=== PATIENT | male | born 1945 | race Caucasian/White ===

== ENCOUNTER 2019-08-21 13:09 | Inpatient (IN) ==
[2019-08-21] MEDS ORDERED: DUONEB (A & A) INH ONE (13:37)
--- NOTE | 2019-08-21 14:24 | Diag Imaging Result Doc PS360 ---
EXAM: CHEST-2 VIEWS HISTORY: sob TECHNIQUE: Chest two views COMPARISON: 04/24/2019 FINDINGS: The lungs are hyperexpanded. Large cavity in the right apex is unchanged. Increased interstitial markings in the right base are similar to the prior study. No cardiomegaly. No pulmonary edema. Surgical clips in the right hilum. IMPRESSION: Stable chest Electronically signed by Genaro Ivey 08/21/2019 2:22 PM
--- NOTE | 2019-08-21 14:35 | EKG Report ---
Test Performed on : 08/21/2019 1:42:41 PM Test Reason : sob Blood Pressure : / mmHG Vent. Rate : 120 BPM Atrial Rate : 120 BPM P-R Int : 164 ms QRS Dur : 082 ms QT Int : 298 ms P-R-T Axes : 000 074 057 degrees QTc Int : 421 ms Sinus tachycardia. Nonspecific ST abnormality Abnormal ECG No previous ECGs available Unconfirmed Result
[2019-08-21 14:42] LABS: ALLEN TEST YES; BE 0.9 mmoll (-3.0-3.0); BLOOD TYPE ARTERIAL; HCO3-(ACT) 25.6 mmoll (20.0-26.0); METHB 1.1 % (0.0-1.5); O2(CT) 17.8 mL/dL (15.0-23.0); O2HB 95.6 % (95.0-99.0); PCO2(98.6) 26 mmHg (35-45); PO2(98.6) 80 mmHg (60-100); SAMPLE BLOOD; SAO2 98.7 % (95.0-100.0); THB 13.2 g/dL (11.5-17.4); pH(98.6) 7.54 (7.35-7.45)
[2019-08-21 14:44] LABS: MODALITY CANNULA
[2019-08-21] MEDS ORDERED: TORADOL IV ONE (14:47)
[2019-08-21] MEDS ORDERED: ZOSYN 4.5 GM in NS 100 ML IV ONE (14:47)
[2019-08-21] MEDS ORDERED: NS 1,000 ML IV ONE (14:47)
[2019-08-21 15:36] LABS: BASO# 0.02 X1000 (0.0-0.2); BASO% 0.2 % (0.0-0.8); EOS# 0.01 X1000 (0.0-0.7); EOS% 0.1 % (0.0-10.0); HEMATOCRIT 35.9 % (42.0-52.0); HEMOGLOBIN 11.6 g/dL (14.0-18.0); IMM GRAN# 0.03 X1000 (0.0-0.04); IMM GRAN% 0.4 % (0.0-0.5); LYMPH# 1.03 X1000 (1.2-3.4); LYMPH% 12.6 % (20.5-51.1); MCHC 32.3 g/dL (33-37); MCV 86.5 FL (81-99); MONO# 1.03 X1000 (0.11-0.59); MONO% 12.6 % (1.7-9.3); MPV 9.8 FL (7.4-10.4); NEUT# 6.06 X1000 (1.4-6.5); NEUT% 74.1 % (42.2-75.2); PLT 301 X1000 (130-400); RBC 4.15 XMIL (4.7-6.1); RDW 13.6 % (11.5-14.5); WBC 8.18 X1000 (4.8-10.8)
[2019-08-21 15:45] LABS: INR 1.09; PROTIME 14.3 Seconds (11.0-16.0); PTT 33.1 Seconds (22.3-41.8)
[2019-08-21 16:13] LABS: AGAP 16; ALB/GLOB RATIO 0.9; ALBUMIN 3.6 g/dL (3.5-5.0); ALKALINE PHOSPHATASE 66 U/L (32-122); BUN 17 mg/dL (8-22); CALCIUM 9.2 mg/dL (8.8-10.2); CHLORIDE 97 mmol/L (98-107); CK PROFILE 21 U/L (24-204); COSMO 276; CREATININE 1.1 mg/dL (0.7-1.2); ESTIMATED GFR > 60; GLUCOSE 107 mg/dL (70-104); GOT 10 U/L (10-34); GPT 6 U/L (10-44); POTASSIUM 3.7 mmol/L (3.5-5.1); SODIUM 137 mmol/L (136-145); TCO2 24 mmol/L (25-35); TOTAL PROTEIN 7.4 g/dL (6.3-8.3)
[2019-08-21 16:15] LABS: URINE SOURCE CLEAN CATCH
--- NOTE | 2019-08-21 16:18 | PROVIDER DOCUMENTATION ---
This chart was entered by Tiffany Baig Scribe, acting as scribe for Carlos Manuel Waite MD. HPI-Respiratory General - General Chief Complaint: SEPSIS ALERT - D Stated Complaint: SOB, COUGH Time Seen by Provider: 08/21/19 13:33 Source: patient Allergies/Adverse Reactions: Patient Allergies Allergy/AdvReac Type Severity Reaction Status Date / Time No Known Allergies Allergy Verified 10/13/16 11:29 Home Medications: Home Medication List Medication Instructions Recorded Confirmed Last Taken Type Albuterol [Albuterol Neb] 2.5 mg INH TID 10/13/16 08/21/19 11/22/17 12:00 History - History of Present Illness-Resp Nature of Presenting Problem: Patient is a 73 year old male who presents to the ED with shortness of breath, fever and cough. States symptoms have been present for 8 days. History of COPD. Quality of Pain: reports: tightness Severity in ED: reports: moderate Onset/Duration: reports: other (8 days) Timing: reports: still present, getting worse Cough Quality/Degree: reports: moderate, productive cough, sputum (green) Current Respiratory Medication Therapy: Initiated see nurses note Associated Symptoms: reports: cough, fever/chills (fever), shortness of breath Similar Symptoms Previously?: Yes Recently seen or treated by another doctor?: No Review of Systems - Adult - REVIEW OF SYSTEMS - ADULT ROS:: limited per condition Constitutional: reports: see HPI, fever. denies: chills, fatique Eyes: reports: no symptoms reported Ears, Nose, Mouth & Throat: reports: no symptoms reported Cardiovascular: reports: no symptoms reported Respiratory: reports: see HPI, cough, shortness of breath. denies: wheezing Gastrointestinal: reports: no symptoms reported Genitourinary: reports: no symptoms reported Musculoskeletal: reports: no symptoms reported Integumentary: reports: no symptoms reported Neurological: reports: no symptoms reported Psychiatric: reports: no symptoms reported Endocrine: reports: no symptoms reported Hematologic/Lymphatic: reports: no symptoms reported Allergic/Immunologic: reports: no symptoms reported All Other Systems: Reviewed and Negative Past History - Adult - PAST MEDICAL HISTORY-ADULT Review of Records: reports: Old Records Reviewed, Social history reviewed & non- contributory. Major Childhood Illnesses: reports: denies history Cardiovascular: reports: denies history Respiratory: reports: COPD, pneumonia Gastrointestinal: reports: denies history Obstetrical/Gynecological: reports: denies history Genitourinary: reports: denies history Musculoskeletal: reports: denies history Neurological: reports: denies history Endocrine/Immune: reports: denies history Other Conditions: reports: denies history - PRIOR SURGERIES/PROCEDURES Surgical/Procedure History: reports: other ( partial lobectomy) - IMMUNIZATION STATUS Childhood Immunizations: See Nurse Assessment Flu Vaccine: See Nurse Assessment - FAMILY HISTORY Family History: reviewed, not pertinent - SOCIAL HISTORY Smoking: cigarettes (former) Substance Use: denies Physical Exam-General - CONSTITUTIONAL General Appearance: alert, moderate distress, thin. negative: obtunded - EYES Eyes: PERRL/EOMI, pink conjunctivae - HEAD, EARS, NOSE, MOUTH & THROAT HENMT: normocephalic/atraumatic, moist mucous membranes - NECK Neck: full range of motion, supple - RESPIRATORY Respiratory: chest non-tender, respiratory distress, accessory muscle use, rales (right), increased rate. negative: wheezing - CARDIOVASCULAR Cardiovascular: normal peripheral pulses, tachycardia. negative: regular rate, rhythm - GASTROINTESTINAL (ABDOMEN) Abdominal Exam: normal bowel sounds, non tender, soft. negative: guarding, rebound - MUSCULOSKELETAL Back Exam: normal inspection, no CVA tenderness Extremity: normal inspection. negative: deformity, erythema, swelling - SKIN Integumentary: normal color, normal turgor, warm/dry. 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 negative: aphasia, facial droop - PSYCHIATRIC Psych/Mental Status: normal mood/affect, normal thought content, normal thought process, oriented x 3. negative: anxious - HEART Score HEART Score: History: Slightly Suspicious HEART Score: ECG: Non-Specific Repolarization Disturbance/LBBB/PM HEART Score: Age: > or = 65 Years HEART Score: Risk Factors for Atherosclerotic Disease: 1 or 2 Risk Factors HEART Score: Troponin: < or = Normal Limit Total HEART Score:: 4 Progress - PLAN OF CARE/RESULTS Progress/Plan/Lab Results: Vital Signs - 8 hr 08/21/19 13:25 08/21/19 14:42 08/21/19 14:44 Temperature 98.7 F Pulse Rate 122 H 122 H 180 H Respiratory Rate 30 H 25 H 41 H Blood Pressure 106/69 O2 Sat by Pulse Oximetry 97 08/21/19 14:45 08/21/19 15:00 08/21/19 15:04 Temperature Pulse Rate 174 H 169 H 108 H Respiratory Rate 37 H 30 H 20 Blood Pressure 106/62 O2 Sat by Pulse Oximetry 100 90 L 08/21/19 15:15 08/21/19 15:30 08/21/19 15:45 Temperature Pulse Rate 117 H 113 H 114 H Respiratory Rate 55 H 51 H 54 H Blood Pressure O2 Sat by Pulse Oximetry 99 99 98 08/21/19 16:00 08/21/19 16:04 Temperature Pulse Rate 102 H 104 H Respiratory Rate 16 52 H Blood Pressure 108/65 O2 Sat by Pulse Oximetry 99 98 Laboratory Results - last 24 hr 08/21/19 08/21/19 08/21/19 14:34 15:09 15:09 WBC 8.18 RBC 4.15 L Hgb 11.6 L Hct 35.9 L MCV 86.5 MCH 28.0 MCHC 32.3 L RDW Std Deviation 13.6 Plt Count 301 MPV 9.8 Immature Gran % (Auto) 0.4 Neut % (Auto) 74.1 Lymph % (Auto) 12.6 L Davis % (Auto) 12.6 H Eos % (Auto) 0.1 Baso % (Auto) 0.2 Immature Gran # (Auto) 0.03 Neut # (Auto) 6.06 Lymph # (Auto) 1.03 L Davis # (Auto) 1.03 H Eos # (Auto) 0.01 Baso # (Auto) 0.02 PT INR PTT (Actin FS) Specimen Type ARTERIAL Sample Site R RADIAL pH 7.54 H pCO2 26 L pO2 80 HCO3 25.6 Base Excess 0.9 Oxyhemoglobin 95.6 ABG O2 Sat (Calculated) 17.8 ABG O2 Saturation 98.7 ABG Carboxyhemoglobin 2.00 ABG Methemoglobin 1.1 Lico Test YES A-a O2 Difference 87.0 Total Hemoglobin 13.2 Lactate 1.70 Liter Flow 2.0 Blood Gas Modality CANNULA FiO2 % 28.0 Sodium 137 Potassium 3.7 Chloride 97 L Carbon Dioxide 24 L Anion Gap 16 BUN 17 Creatinine 1.1 Estimated GFR/1.73 m2 > 60 BUN/Creatinine Ratio 15 Glucose 107 H Calculated Osmolality 276 Calcium 9.2 Total Bilirubin 0.50 AST 10 ALT 6 L Alkaline Phosphatase 66 Creatine Kinase 21 L Troponin T Total Protein 7.4 Albumin 3.6 Globulin 3.8 Albumin/Globulin Ratio 0.9 Plasma Lactate 08/21/19 08/21/19 08/21/19 15:09 15:09 15:09 WBC RBC Hgb Hct MCV MCH MCHC RDW Std Deviation Plt Count MPV Immature Gran % (Auto) Neut % (Auto) Lymph % (Auto) Davis % (Auto) Eos % (Auto) Baso % (Auto) Immature Gran # (Auto) Neut # (Auto) Lymph # (Auto) Davis # (Auto) Eos # (Auto) Baso # (Auto) PT 14.3 INR 1.09 PTT (Actin FS) 33.1 Specimen Type Sample Site pH pCO2 pO2 HCO3 Base Excess Oxyhemoglobin ABG O2 Sat (Calculated) ABG O2 Saturation ABG Carboxyhemoglobin ABG Methemoglobin Lico Test A-a O2 Difference Total Hemoglobin Lactate Liter Flow Blood Gas Modality FiO2 % Sodium Potassium Chloride Carbon Dioxide Anion Gap BUN Creatinine Estimated GFR/1.73 m2 BUN/Creatinine Ratio Glucose Calculated Osmolality Calcium Total Bilirubin AST ALT Alkaline Phosphatase Creatine Kinase Troponin T < 0.010 Total Protein Albumin Globulin Albumin/Globulin Ratio Plasma Lactate 1.4 Orders Category Date Time Status Cardiac Monitoring DIRECTED Care 08/21/19 13:30 Active Cardiac Monitoring DIRECTED Care 08/21/19 13:37 Active IV Insertion ORDERED Care 08/21/19 13:37 Completed Notify MD of + Sepsis Screen NOW Care 08/21/19 13:37 Active Notify Physician As Ordered Care 08/21/19 13:37 Active Oxygen Therapy- ED Nursing DIRECTED Care 08/21/19 13:30 Active Oxygen Therapy- ED Nursing DIRECTED Care 08/21/19 13:37 Active Saline Loc NOW Care 08/21/19 13:30 Active CHEST-2 VIEWS [RAD] Stat Exams 08/21/19 13:30 Completed ABG [RESP] Routine Lab 08/21/19 14:34 Completed BLOOD CULTURE [BLDCUL] Stat Lab 08/21/19 15:28 Results CBC WITH ELECTRONIC DIFF [HEME] Stat Lab 08/21/19 15:09 Completed CK PROFILE [SP CHEM] Stat Lab 08/21/19 15:09 Completed COMPREHENSIVE METABOLIC PANEL [CHEM] Stat Lab 08/21/19 15:09 Completed LACTATE, PLASMA [CHEM] Lab 08/21/19 16:45 Uncollected LACTATE, PLASMA [CHEM] Lab 08/21/19 19:45 Uncollected LACTATE, PLASMA [CHEM] Stat Lab 08/21/19 15:09 Completed PRO B-NATRIURETIC PEPTIDE Stat Lab 08/21/19 15:09 Received PROTIME WITH INR [COAG] Stat Lab 08/21/19 15:09 Completed PTT [COAG] Stat Lab 08/21/19 15:09 Completed TROPONIN T Stat Lab 08/21/19 15:09 Completed URINALYSIS W/POSS RFLX CULT [URINALYSIS] Stat Lab 08/21/19 16:10 Ordered 0.9% Sodium Chloride Inj [Ns] 1,000 ml Med 08/21/19 14:47 Discontinued IV 999 mls/hr Albuterol 2.5MG/Ipratrop 0.5MG [Duoneb (A & A)] Med 08/21/19 13:37 Discontinued 3 ml INH NOW ONE Ketorolac [Toradol] Med 08/21/19 14:47 Discontinued 15 mg IV NOW ONE Piperacillin/Tazobactam [Zosyn] 4.5 gm Med 08/21/19 14:47 Discontinued 0.9% Sodium Chloride Inj [Ns] 100 ml IV NOW Aerosol Treatments Routine Oth 08/21/19 13:38 Completed Aerosol Treatments Stat Oth 08/21/19 13:38 Completed CP/SOB/Palp >45 yrs of Age Stat Oth 08/21/19 13:29 Ordered Oxygen Device Stat Oth 08/21/19 13:37 Active Pulse Oximetry Stat Oth 08/21/19 13:37 Active neb [Aerosol Treatments] Stat Oth 08/21/19 13:37 Completed EKG [EKG] Stat Ther 08/21/19 13:30 Draft EKG [EKG] Stat Ther 08/21/19 15:52 Ordered Result Diagrams: 08/21/19 15:09 08/21/19 15:09 - EKG 1 Time of EKG reading by physician:: 13:42 EKG Read and Signed by:: Carlos Manuel Waite EKG Interpretation (*Must complete 3 of following elements*): Abnormal Rate: 120 Rhythm: sinus tachycardia [place]: normal [place] Interval: normal Comments: nonspecific ST abnormality. 2 Time of EKG reading by physician:: 14:56 EKG Read and Signed by:: Carlos Manuel Waite EKG Interpretation (*Must complete 3 of following elements*): Abnormal Rate: 175 Rhythm: supraventricular tachycardia [place]: normal Comments: cannot rule out inferior infarct, age undetermined - XRAY 1 XRAY Study: Chest Impression: See EMR Report ( EXAM: CHEST-2 VIEWS HISTORY: sob TECHNIQUE: Chest two views COMPARISON: 04/24/2019 FINDINGS: The lungs are hyperexpanded. Large cavity in the right apex is unchanged. Increased inter stitial markings in the right base are similar to the prior study. No cardiomegaly. No pulmonary edema. Surgical clips in the right hilum. IMPRESSION: Stable chest Electronically signed by Genaro Ivey 08/21/2019 2:22 PM 08/21/19 142 Interpreting Physician: Genaro Ivey MD Dictated Date/Time: 08/21/191421 cc: Carlos Manuel Waite MD; None,PCP) Departure - Departure Date of Disposition Decision: 08/21/19 Time of Disposition Decision: 16:16 DIAGNOSIS: COPD exacerbation, Respiratory distress, acute, Tachycardia Disposition: ADMITTED INPATIENT 09 Certified Medical Emergency: Emergent Condition: Stable Referrals and Follow-Ups: None,PCP [Primary Care Provider] - - Critical Care Note This patient required my direct & personal management of CC.: No Attestation - Physician/ ABDIRIZAK Attestation The physician spent face to face time with patient:: Yes Advanced Practice Provider documentation review:: Supervising physician onsite and consulted in the evaluation and care of this patient. The physician did have a face to face encounter with the patient. This chart was documented by the indicated scribe, (Tiffany Baig Scribe) and accurately reflects the services I performed and decisions made by me, Carlos Manuel Thacker MD, as attested by the provider's signature.
[2019-08-21 16:19] LABS: BILIRUBIN URINE NEGATIVE (NEGATIVE); BLOOD URINE TRACE (NEGATIVE); COLOR YELLOW; GLUCOSE URINE TRACE mg/dL (NEGATIVE); KETONE URINE 10 mg/dL (NEGATIVE); LEUKOCYTES URINE NEGATIVE (NEGATIVE); NITRITE URINE NEGATIVE (NEGATIVE); PROTEIN URINE 100 mg/dL (NEGATIVE); SP GRAVITY URINE 1.032; TURBIDITY URINE CLEAR (CLEAR); UROBILINOGEN URINE NORMAL (NORMAL)
[2019-08-21 16:21] LABS: UR EPITHELIAL CELLS <10 /HPF (<10); URINE BACTERIA NEGATIVE /HPF; URINE RBC <10 /HPF (<10); URINE WBC <10 /HPF (<10)
[2019-08-21] MEDS ORDERED: TYLENOL PO PRN (16:54)
[2019-08-21] MEDS ORDERED: DUONEB (A & A) INH PRN (16:56)
--- NOTE | 2019-08-21 17:11 | EKG Report ---
Test Performed on : 08/21/2019 2:56:29 PM Test Reason : sob,tachycardia Blood Pressure : / mmHG Vent. Rate : 175 BPM Atrial Rate : 174 BPM P-R Int : 000 ms QRS Dur : 094 ms QT Int : 286 ms P-R-T Axes : 000 073 069 degrees QTc Int : 488 ms Supraventricular tachycardia. Cannot rule out Inferior infarct , age undetermined Abnormal ECG When compared with ECG of 21-AUG-2019 13:42, (Unconfirmed) ST now depressed in Inferior leads Nonspecific T wave abnormality now evident in Lateral leads Unconfirmed Result
[2019-08-21] MEDS: SOLU-MEDROL IV SCH (18:22)
--- NOTE | 2019-08-21 18:27 | HISTORY AND PHYSICAL ---
HISTORY OF PRESENT ILLNESS: Mr. Martinez said for a week now, he has had trouble with shortness of breath and dyspnea and coughing. Denies any fever or chills. Denies pleuritic pain. Denies real pressure or squeezing chest pain. No hard chills. He has been coughing up greenish sputum. He has known COPD. PAST MEDICAL HISTORY: 1. Severe chronic obstructive pulmonary disease. He is not on oxygen at home. 2. History of bronchiectasis. He has a history of right upper lobectomy for necrotizing pneumonia. 3. He has had a history of quinolone resistant Pseudomonas when he was in the hospital on 12/02/2017. He really gives no other real history. SOCIAL HISTORY: Retired. 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 Also worked at [employer]. Greater than [address] Montalvo is his ems director; been following for a while. FAMILY HISTORY: Positive for emphysema, coronary artery disease. REVIEW OF SYSTEMS: General: He is not eating very much. He is just not very hungry. He said for the last couple of days, his bowels have not worked, but he does not feel constipated. He just has not put much food in. HEENT: No change in vision or hearing acuity. Respiratory: As above. Increased dyspnea, increased cough, increased dyspnea on exertion and dyspnea at rest. Cardiovascular: No chest pain or tachypalpitations. Gastrointestinal and Genitourinary: No gross hematuria or dysuria. Musculoskeletal/Neurologic: No significant complaints. Endocrinologic/Hematologic: No significant history. PHYSICAL EXAMINATION: VITAL SIGNS: Temperature 98.7 degrees, pulse 104, respirations were at 50 when he came in, blood pressure 108/65. HEENT: Pupils are equal and round. He is alert and oriented x3. Pleasant. Oral and nasal mucosa a little bit dry. No distended neck veins. CVP less than 6 cm from the right atrium. LUNGS: Decreased diminished breath sounds at both bases. Prolonged expiratory phase. Tachypneic, but able to talk, and he did have a deep raspy cough. CARDIOVASCULAR: Regular rhythm and rate without murmur or S3. Apparently, when he came, he had a supraventricular tachycardia. Rate was 175, and it slowed down. He is in sinus tachycardia, rate 120. ABDOMEN: Soft, nontender, and nondistended. SKIN: Warm and dry. LAB: White count 8180, hematocrit is 35, platelet count is 301,000. Sodium 137, potassium 3.7, chloride 97, BUN 17, creatinine 1.1, blood sugar is 107, calcium is 9.2, AST is 10, ALT is 6. Troponin was less than 0.01. ProBNP 458. Albumin 3.6. Pro-time 14.3. Urinalysis unremarkable. Blood gas: PH was 7.54, pCO2 was 26, pO2 was 80, and this was on FiO2 of 28%. X-RAY: Chest x-ray: Stable chest. Lungs are hyperexpanded. Large cavity in the right apex, unchanged. Increased interstitial markings in the right base similar to prior study. No cardiomegaly. No pulmonary edema. ASSESSMENT AND PLAN: 1. Chronic obstructive pulmonary disease and underlying bronchiectasis. He is status post right upper lobectomy for necrotizing pneumonia in the past. History in the past of having a quinolone resistant Pseudomonas. At this time, he has had increased cough and increased bronchospasm, and we are going to see if we can treat him with some Solu-Medrol. We will give him some empiric antibiotic. I guess we probably ought to use cefepime because he has had a history of resistant Pseudomonas infections in the past. We will reculture his sputum and ask Dr. Montalvo, who knows him well, to follow along. 2. His supraventricular tachycardia looks to be sinus tachycardia. It looks like he is volume depleted. We are going to give him some normal saline. Will run it in at 85 mL an hour. Will give him Solu-Medrol. I think we will do the Solu-Medrol at 60 mg intravenously every 8 hours. Will give him DuoNebs every 4 hours while awake and then every 2 hours p.r.n., and we will put him on an inhaled corticosteroid inhaler. I will use Symbicort 80 micrograms and will do 2 puffs twice a day, and of course his supplementary oxygen. cc: Lico Cortes MD
[2019-08-21] MEDS: MAXIPIME 2 GM in NS 100 ML IV SCH (18:28)
[2019-08-21] MEDS: DUONEB (A & A) INH SCH ×2 (22:29)
[2019-08-21] MEDS: SYMBICORT 80/4.5 MICROGM INHALER INH SCH (23:14)
[2019-08-22] MEDS: SOLU-MEDROL IV SCH ×3 (01:16→16:15)
[2019-08-22] MEDS: DUONEB (A & A) INH SCH ×6 (03:28→23:20)
[2019-08-22] MEDS: MAXIPIME 2 GM in NS 100 ML IV SCH ×2 (05:24→16:50)
[2019-08-22 07:22] LABS: RBC 4.02 XMIL (4.7-6.1); RDW 13.5 % (11.5-14.5)
[2019-08-22 08:07] LABS: AGAP 13; ALB/GLOB RATIO 0.7; ALBUMIN 3.1 g/dL (3.5-5.0); ALKALINE PHOSPHATASE 66 U/L (32-122); BUN 16 mg/dL (8-22); CALCIUM 8.9 mg/dL (8.8-10.2); CHLORIDE 104 mmol/L (98-107); COSMO 283; CREATININE 0.8 mg/dL (0.7-1.2); ESTIMATED GFR > 60; GLUCOSE 178 mg/dL (70-104); GOT 10 U/L (10-34); GPT 6 U/L (10-44); SODIUM 139 mmol/L (136-145); TCO2 22 mmol/L (25-35); TOTAL BILIRUBIN 0.34 mg/dL (0.20-1.00); TOTAL PROTEIN 7.7 g/dL (6.3-8.3)
[2019-08-22 08:27] LABS: BASO# 0.01 X1000 (0.0-0.2); BASO% 0.2 % (0.0-0.8); HEMATOCRIT 35.3 % (42.0-52.0); HEMOGLOBIN 11.6 g/dL (14.0-18.0); IMM GRAN# 0.02 X1000 (0.0-0.04); IMM GRAN% 0.5 % (0.0-0.5); LYMPH# 0.88 X1000 (1.2-3.4); MCH 28.9 PG (27-31); MCHC 32.9 g/dL (33-37); MCV 87.8 FL (81-99); MONO# 0.14 X1000 (0.11-0.59); MONO% 3.2 % (1.7-9.3); MPV 9.7 FL (7.4-10.4); NEUT# 3.34 X1000 (1.4-6.5); NEUT% 76.1 % (42.2-75.2); PLT 262 X1000 (130-400); WBC 4.39 X1000 (4.8-10.8)
[2019-08-22] MEDS: SYMBICORT 80/4.5 MICROGM INHALER INH SCH ×2 (08:29→19:36)
--- NOTE | 2019-08-22 15:56 | PROGRESS NOTE ---
DATE: 08/22/2019 SUBJECTIVE: Patient has no major complaints. Still coughing, still short of breath overall. OBJECTIVE: Vital Signs: Blood pressure 127/47, heart rate 65, respiratory rate 26, temperature 97.4 degrees, satting 100% on room air. Cardiovascular: Regular rate and rhythm. Pulmonary: Bilateral breath sounds. Clear to auscultation. GI: Soft, nontender, nondistended. Bowel sounds are positive. Extremity Exam: No clubbing or cyanosis. Lymphatic Exam: No peripheral edema. Neurological Exam: Nonfocal. He is very thin, cachectic. He does have some end- expiratory wheezes. He has a very productive cough, but his wheezing has improved. LABORATORY DATA: White count 4, hemoglobin and hematocrit 11 and 35, platelets 362. Basic was normal. PROBLEM LIST: 1. Acute chronic obstructive pulmonary disease exacerbation, probably atelectasis. I am going to go ahead and progress with a CT as it has been a while. He has had Pseudomonas in the past. He is currently on cefepime. He is on steroids, breathing treatments and follow. There was a description that we consulted Dr. Montalvo, but he did not specifically ask for Dr. Montalvo, and I get a sense Dr. Montalvo follows him pretty closely because he has had several visits. 2. Hypoxic respiratory failure. We will continue supportive therapies and monitor. 3. Disposition: Pending clinical status. Anticipate discharge and it is at least going to be a couple days. cc: Rupert Sandoval MD
--- NOTE | 2019-08-22 19:05 | Diag Imaging Result Doc PS360 ---
EXAM: CT THORAX W/CONTRAST HISTORY: pneumonia TECHNIQUE: CT chest with intravenous contrast COMPARISON: 10/08/2015 and chest x-ray from 04/24/2019 FINDINGS: Severe emphysema. The right upper lobe has been resected. The mediastinum is shifted to the right. Large right apical cavity with debris has increased in size. There are surgical clips in this right suprahilar area. No cardiomegaly. No effusions. No thoracic aortic aneurysm or dissection. Normal opacification of the pulmonary arteries. Development of multiple tiny cavities in the right lung base. Scattered granuloma. IMPRESSION: The appearance of the CT is unchanged from the prior chest x-ray of 04/24/2019. Interval progression compared to the CT from 10/08/2015. This exam was performed using automated exposure control, adjustment of mA or kV according to patient size, and/or use of iterative reconstruction technique. Electronically signed by Genaro Ivey 08/22/2019 7:02 PM
[2019-08-23] MEDS: SOLU-MEDROL IV SCH ×3 (01:47→17:04)
[2019-08-23] MEDS: DUONEB (A & A) INH SCH ×6 (03:21→23:26)
--- NOTE | 2019-08-23 05:02 | PULMONOLOGY CONSULTATION ---
DATE: 08/22/2019 REQUESTING CLINICIAN: Rupert Sandoval MD. REASON FOR CONSULTATION: Chronic obstructive pulmonary disease with exacerbation of bronchiectasis. HISTORY OF PRESENT ILLNESS: Mr. Martinez is a 73-year-old white male who has been followed by this practitioner for several years. The patient had a history of hemoptysis with necrotizing pneumonia of the right upper lobe and ultimately required a right upper lobectomy due to ongoing bleeding and persistent air leak. The patient has severe COPD with a component of bronchiectasis. Prior cultures have revealed quinolone resistant Pseudomonas, but not consistently. The patient reports he developed increased cough, increased sputum production, increasing shortness of breath and fevers on the day prior to admission. He was hoping that he would improve and delayed coming to the emergency room. He was admitted last evening. CT scan of the thorax was performed today, which reveals severe emphysematous changes with chronic right apical cavity, and extensive cavitary/fibrosis of the right lower lobe. He reports he has improved with antibiotics. PAST MEDICAL HISTORY/PROBLEM LIST: 1. Prior right upper lobectomy for necrotizing pneumonia as per above. 2. 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 3. Bronchiectasis. 4. History of quinolone resistant Pseudomonas aeruginosa. The most recent sputum cultures approximately 1 year ago revealed quinolone sensitiv Pseudomonas aeruginosa. 5. 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 SOCIAL HISTORY: The patient has a remote history of tobacco. He is retired from [employer]. FAMILY HISTORY: Noncontributory to current presentation. REVIEW OF SYSTEMS: As noted in the HPI. PHYSICAL EXAMINATION: General: Reveals a frail chronically ill-appearing male resting comfortably and in no distress. Vital Signs: Blood pressure is 124/48, heart rate is 74, respiratory rate is 26, oxygen saturation is 100%. HEENT: Pupils are equal and reactive. Oropharynx appears clear. Neck: Supple. Chest: Reveals crackles at the right base with rhonchi bilaterally. The patient has prolonged expiratory phase Cardiac: S1, S2. Abdomen: Soft. Extremities: Without edema. LABORATORY DATA: CT scan as per HPI. Sputum culture is pending. White blood count is 4.39, hemoglobin is 11.6, platelet count is 262,000. IMPRESSION: A 73-year-old with: 1. Exacerbation of bronchiectasis. 2. Severe COPD. 3. Fevers. 4. Pulmonary cachexia. DISCUSSION: A 73-year-old with the problems outlined above. The patient reports he has had some improvement with current antibiotic regimen. We will recommend a 2-week course of antibiotics for his current exacerbation. The exact antibiotics will depend on the results of his sputum cultures. cc: Wero Montalvo MD
[2019-08-23] MEDS: PRILOSEC PO SCH (06:12)
[2019-08-23] MEDS: LOVENOX SUBQ SCH (06:12)
[2019-08-23] MEDS: MAXIPIME 2 GM in NS 100 ML IV SCH ×2 (06:12→17:13)
[2019-08-23] MEDS: SYMBICORT 80/4.5 MICROGM INHALER INH SCH ×2 (07:40→19:27)
[2019-08-23 08:26] LABS: AGAP 12; BUN 20 mg/dL (8-22); CALCIUM 9.3 mg/dL (8.8-10.2); CHLORIDE 105 mmol/L (98-107); COSMO 288; CREATININE 0.8 mg/dL (0.7-1.2); ESTIMATED GFR > 60; GLUCOSE 173 mg/dL (70-104); POTASSIUM 3.8 mmol/L (3.5-5.1); SODIUM 141 mmol/L (136-145); TCO2 24 mmol/L (25-35)
[2019-08-23 08:45] LABS: EOS# 0.02 X1000 (0.0-0.7); EOS% 0.2 % (0.0-10.0); HEMATOCRIT 35.2 % (42.0-52.0); HEMOGLOBIN 11.2 g/dL (14.0-18.0); IMM GRAN# 0.08 X1000 (0.0-0.04); IMM GRAN% 0.7 % (0.0-0.5); LYMPH# 0.79 X1000 (1.2-3.4); MCHC 31.8 g/dL (33-37); MONO# 0.39 X1000 (0.11-0.59); MONO% 3.4 % (1.7-9.3); MPV 9.4 FL (7.4-10.4); NEUT# 10.04 X1000 (1.4-6.5); NEUT% 88.7 % (42.2-75.2); PLT 346 X1000 (130-400); RDW 13.5 % (11.5-14.5); WBC 11.32 X1000 (4.8-10.8)
[2019-08-23 09:00] LABS: BANDS 2 % (0-1); LYMPHS 10 % (21-51); MONO 2 % (1-9); SEGS 86 % (42-75)
--- NOTE | 2019-08-23 20:46 | PROGRESS NOTE ---
DATE: 08/23/2019 SUBJECTIVE: The patient has no major complaints. He is doing okay. OBJECTIVE: Vital Signs: Blood pressure 115/44, heart rate of 82, respiratory rate of 24, temperature 97.3 degrees, 98% on room air. Cardiovascular: Regular rate and rhythm. Pulmonary: Bilateral breath sounds. Clear to auscultation. No wheezing. GI: Soft, nontender, and nondistended. Bowel sounds are positive. PROBLEM LIST: 1. Acute chronic obstructive pulmonary disease exacerbation. He is still on breathing treatments and steroids, and we will follow. 2. White count is 11, hemoglobin and hematocrit 11 and 35, platelets 346,000. 3. CT scan showed severe emphysema, resected right upper lobe, apical cavity with debris, but there was no clear pneumonia. 4. Bronchitis, but growing out gram-negative rods. He has had Pseudomonas in the past and he is currently on status cefepime. Dr. Montalvo has been consulted, so we will treat based on the culture results. 5. Disposition. Once we have culture results, should be able to go home soon, hopefully in the next 1 to 2 days pending resolution. cc: Rupert Sandoval MD
[2019-08-24] MEDS: SOLU-MEDROL IV SCH ×2 (00:26→09:05)
[2019-08-24] MEDS: DUONEB (A & A) INH SCH ×4 (03:40→15:37)
[2019-08-24] MEDS: LOVENOX SUBQ SCH (05:59)
[2019-08-24] MEDS: PRILOSEC PO SCH (06:00)
[2019-08-24] MEDS: MAXIPIME 2 GM in NS 100 ML IV SCH (06:00)
--- NOTE | 2019-08-24 06:28 | PULMONOLOGY PROGRESS NOTE ---
DATE: 08/23/2019 SUBJECTIVE: The patient is awake, alert, and conversant. He has a good cough effort but reports his sputum production has diminished. OBJECTIVE: Vital Signs: The patient has been afebrile for the last 24 hours. Blood pressure 115/44, heart rate 82, respiratory rate 24, and oxygen saturation 98% on 2 L per nasal cannula. HEENT: Pupils are equal and reactive. Oropharynx appears clear. Neck: Supple. Lungs: Chest reveals rhonchi bilaterally with crackles at the right base. Cardiac: S1, S2. Abdomen: Soft. Extremities: Without edema. LABORATORIES: Sputum culture is growing a gram-negative reilly. White blood count is elevated 11.32, hemoglobin 11.2, and platelet count 346,000. IMPRESSION: A 73-year-old with the followin. Exacerbation of bronchiectasis. 2. Severe chronic obstructive pulmonary disease. 3. Fevers. 4. Pulmonary cachexia. 5. Gram-negative organism in sputum, likely responsible for his exacerbation of bronchiectasis. PLAN: 1. Continue current antibiotic regimen. 2. Continue bronchial hygiene. 3. Anticipate 2 week course of antibiotics. Antibiotic selection will depend on results of his sputum cultures. cc: Wero Montalvo MD
[2019-08-24] MEDS: SYMBICORT 80/4.5 MICROGM INHALER INH SCH (08:00)
[2019-08-24 08:46] LABS: BASO# 0.01 X1000 (0.0-0.2); BASO% 0.1 % (0.0-0.8); HEMATOCRIT 34.6 % (42.0-52.0); IMM GRAN# 0.26 X1000 (0.0-0.04); IMM GRAN% 1.8 % (0.0-0.5); LYMPH# 0.72 X1000 (1.2-3.4); LYMPH% 5.1 % (20.5-51.1); MCH 28.3 PG (27-31); MCHC 31.8 g/dL (33-37); MCV 88.9 FL (81-99); MONO# 0.64 X1000 (0.11-0.59); MONO% 4.5 % (1.7-9.3); MPV 9.5 FL (7.4-10.4); NEUT# 12.58 X1000 (1.4-6.5); NEUT% 88.5 % (42.2-75.2); PLT 327 X1000 (130-400); RBC 3.89 XMIL (4.7-6.1); RDW 13.9 % (11.5-14.5); WBC 14.21 X1000 (4.8-10.8)
[2019-08-24 09:11] LABS: AGAP 15; BUN 25 mg/dL (8-22); CALCIUM 9.3 mg/dL (8.8-10.2); CHLORIDE 102 mmol/L (98-107); COSMO 286; CREATININE 0.8 mg/dL (0.7-1.2); ESTIMATED GFR > 60; GLUCOSE 147 mg/dL (70-104); SODIUM 140 mmol/L (136-145); TCO2 23 mmol/L (25-35)
[2019-08-24] MEDS ORDERED: LEVAQUIN 750 MG/D5W 750 MG/150 ML IVPB IV SCH (14:00)
[2019-08-24 14:22] VITALS: BP 127/59
--- NOTE | 2019-08-25 05:11 | DISCHARGE SUMMARY ---
ADMISSION DATE: 08/21/2019 DISCHARGE DATE: 08/24/2019 CONSULTATIONS: Dr. Wero Montalvo with Pulmonology. PERTINENT PROCEDURES: Chest CT, interval progression compared to previous CT on 10/08/2015. Severe emphysema. Right upper lobe has been resected. Mediastinum shifted to the right, large right apical cavity with debris has increased in size. Surgical clips in the right side of hilar area. Development of multiple tiny cavities in the right lung base. Scattered granuloma. DISCHARGE DIAGNOSES: 1. Acute chronic obstructive pulmonary disease exacerbation. The patient was treated with supplemental O2, bronchodilators, aggressive pulmonary toilet, IV steroids, and IV antibiotics. Followed by Dr. Montalvo with Pulmonology. He will be discharged home on p.o. Levaquin, a Medrol Dosepak, and bronchodilators. 2. Exacerbation of bronchial stasis. See #1. 3. Pulmonary cachexia. Supraventricular tachycardia ruled to be sinus tachycardia. 4. Volume depletion. Patient was given IV fluids. HOSPITAL COURSE: Briefly, Mr. Martinez is a 73-year-old gentleman who is followed by Dr. 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 He also has severe COPD with a component of bronchial stasis. The patient came to the ED when he developed an increase in cough, increase in sputum production and shortness of breath as well as fevers. 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 He has improved with IV antibiotics, bronchodilators, IV steroids and breathing treatment as well as followed by Dr. Montalvo. His final sputum culture grew out Pseudomonas. Given his improvement, he will be discharged home today on antibiotics, Medrol Dosepak continuation and follow up with Dr. Montalvo. VITAL SIGNS: Temperature is 97.3 degrees axillary, heart rate 78, respirations 22, blood pressure 140/64, O2 is 99% on room air. DISCHARGE DIET: Regular with Ensure each meal. DISCHARGE MEDICATIONS: 1. Albuterol nebulizer 2.8 mg inhaled t.i.d. 2. Levofloxacin 750 mg p.o. daily. 3. Medrol Dosepak 4 mg p.o. as directed x1 package. 4. Prilosec 40 mg p.o. daily. 5. Symbicort 80/4.5 mcg inhaler 2 puffs inhaled b.i.d. 6. Tylenol 650 mg p.o. q.6 hours p.r.n. FOLLOWUP: Mr. Martinez is being discharged back home with self care. He is to continue follow up with Dr. Montalvo as well as his primary care provider. He can return to the ED or call 911 for any worsening of symptoms. Dictated by JUAN Shah for Cali Marques MD cc: MD Wero Marlow MD
== END 2019-08-24 16:18 | disposition home or self-care (01) | DRG 191 ==
LOC: ED 13:09 → 3N 18:53 → SUATTDRO 18:53
PROVIDERS: ATTEND Internal Medicine